=== PATIENT | female | born 1995 | race Caucasian/White ===

== ENCOUNTER 2017-10-18 08:59 | Emergency (ER) | payer OTHER ==
[~2017-10-18 08:59] MED LIST: CHERATUSSIN AC118 M1 PO; MUCINEX1200 M1 PO; PREDNISONE50 M1 PO; PROAIR HFA8.5 GM INH; ZITHROMAX250 M2 PO
[2017-10-18 09:09] VITALS: BP 111/72
--- NOTE | 2017-10-18 10:24 | ED DYSPNEA/ASTHMA COMPLAINT ---
History of Present Illness General Chief Complaint: General Adult Stated Complaint: WHEEZING,COUGH, MUCUS COMING UP X1 WEEK Source: patient Exam Limitations: no limitations Vital Signs & Intake/Output Vital Signs & Intake/Output Vital Signs Date Time Temp Pulse Resp B/P B/P Pulse O2 O2 Flow FiO2 Mean Ox Delivery Rate 10/18 908 97.3 83 20 111/72 95 Allergies Coded Allergies: Penicillins (Intermediate, HIVES 12/24/16) oxycodone (VOMITING 12/24/16) Triage Note: PER PT "THINK I HAVE BRONCHITIS PROE TO IT COUGH X 1 WEEK NO FEVER LMP 2 WEEKS AGO Triage Nurses Notes Reviewed? yes Onset: Abrupt Duration: week(s): (1), constant, continues in ED, getting worse Timing: single episode today Severity: mild, moderate Activities at Onset: none Prior Episodes/Possible Cause: frequent episodes Associated Symptoms: cough, wheezing LMP (ages 10-50): unknown : No Patient currently breastfeeds: No HPI: 22-year-old female history of bronchitis was evaluation of cough, congestion, wheezing and shortness of breath. Patient reports that over the past 5 or 6 months she has had multiple episodes of acute bronchitis. She has been seen by pulmonology treated with prednisone and steroid inhalers with some improvement. Currently she is only on a steroid inhaler that she is using once a day. She has no rescue inhaler. She is not on prednisone and antibiotics. This current episode started about one week ago. She reports a cough productive of yellow sputum. She is a current smoker but does not smoke every day. She's never diagnosed with asthma. She has not had fevers no hemoptysis no lower extremity edema. (Donald MONTENEGRO,Chris) Reconcile Medications Albuterol Sulfate (Proair Hfa) 90 MCG HFA.AER.AD 2 PUF INH Q4-6 PRN PRN wheezing Albuterol Sulfate (Proair Hfa) 90 MCG HFA.AER.AD 2 PUF INH Q4-6 PRN PRN wheezing Albuterol Sulfate (Proair Hfa) 90 MCG HFA.AER.AD 2 PUF INH Q4-6 PRN PRN COUGH/ WHEEAZING Azithromycin (Zithromax) 250 MG TABLET 1 DP PO AD bronchitis 2 the first day followed by 1 for days 2-5 Azithromycin (Zithromax) 250 MG TABLET 1 DP PO AD bronchitis 2 the first day followed by 1 for days 2-5 Azithromycin 250 MG TABLET 1 DP PO AD BRONCHITIS 2 the first day followed by 1 for days 2-5 Codeine Phosphate/Guaifenesi (Cheratussin AC Syrup) 10 MG-100 MG/5 ML LIQUID 10 ML PO Q6H PRN COUGH Codeine Phosphate/Guaifenesi (Cheratussin AC Syrup) 10 MG-100 MG/5 ML LIQUID 10 ML PO Q6H PRN COUGH Codeine Phosphate/Guaifenesi (Cheratussin AC Syrup) 10 MG-100 MG/5 ML LIQUID 10 ML PO Q6H PRN COUGH Guaifenesin (Mucinex) 1,200 MG TAB.ER.12H 1 TAB PO BID MUCUS (Reported) Prednisone 50 MG TABLET 1 TAB PO DAILY bronchitis Prednisone 50 MG TABLET 1 TAB PO DAILY bronchitis Prednisone (Deltasone) 20 MG TABLET 2 TAB PO ONCE DAILY BRONCHITIS (Molly URBINA,Eliseo Darnell) Past History Travel History Traveled to [place] past 21 day No Medical History Any Pertinent Medical History? 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 No (Chris Llanos) Review of Systems Review of Systems Constitutional: Reports: no symptoms. EENTM: Reports: nasal congestion. Respiratory: Reports: see HPI, cough, short of breath, sputum production, wheezing. Cardiovascular: Reports: no symptoms. GI: Reports: no symptoms. Genitourinary: Reports: no symptoms. Musculoskeletal: Reports: no symptoms. Skin: Reports: no symptoms. Neurological/Psychological: Reports: no symptoms. Hematologic/Endocrine: Reports: no symptoms. Immunologic/Allergic: Reports: no symptoms. All Other Systems: Reviewed and Negative (Chris Llanos) Physical Exam Physical Exam General Appearance: well developed/nourished, no apparent distress, alert, awake Head: atraumatic, normal appearance Eyes: Bilateral: normal appearance, PERRL, EOMI. Ears, Nose, Throat: hearing grossly normal Neck: normal inspection, supple, full range of motion Respiratory: normal breath sounds, chest non-tender, no respiratory distress, wheezing Cardiovascular: regular rate/rhythm, normal peripheral pulses Peripheral Pulses: 2+ radial (R), 2+ radial (L) Gastrointestinal: soft, non-tender Extremities: normal inspection, normal range of motion, no edema Neurologic/Psych: no motor/sensory deficits, awake, alert, oriented x 3, normal gait Skin: intact, normal color, warm/dry Lymphatic: no anterior cervical jocelyn Core Measures ACS in differential dx? No CVA/TIA Diagnosis No Sepsis Present: No Sepsis Focused Exam Completed? No (Chris Llanos) Progress Differential Diagnosis: asthma, bronchitis, COPD, pulmonary embolism, pneumonia, pneumothorax, unstable angina Plan of Care: Patient is here with diffuse wheezing cough and shortness of breath. She has a history of recurrent bronchitis. PERC score is negative. Patient is medicated with prednisone and DuoNeb. She is afebrile vital signs stable. Patient is feeling better after DuoNeb. She is given a prescription for prednisone burst Zithromax pro-air inhaler and Cheratussin. Advised to follow- up with her primary care doctor and network and threat support specialist. Discussed return precautions patient agrees the plan Initial ED EKG: none (Chris Llanos) Departure Departure Disposition: HOME OR SELF CARE Condition: Stable Clinical Impression Primary Impression: Acute bronchitis Qualifiers: Bronchitis organism: unspecified organism Qualified Code: J20.9 - Acute bronchitis, unspecified Referrals: Veronica URBINA,Titus Darnell (PCP/Family) Additional Instructions: Take antibiotics and steroids as directed for the full course. Continue your current steroid inhaler. Also use pro-air inhaler 2 puffs every 4-6 hours as needed. Cheratussin can be use as needed for cough this may cause drowsiness. Quit smoking. Make a follow-up with the primary care doctor and network and threat support specialist as soon as possible. Monitor symptoms and return with any concerns. Departure Forms: Customer Survey General Discharge Information Prescriptions: Current Visit Scripts Codeine Phosphate/Guaifenesi (Cheratussin AC Syrup) 10 ML PO Q6H PRN COUGH #240 ML Prednisone (Deltasone) 2 TAB PO ONCE DAILY #10 TAB Azithromycin 1 DP PO AD #6 TAB 2 the first day followed by 1 for days 2-5 Albuterol Sulfate (Proair Hfa) 2 PUF INH Q4-6 PRN PRN COUGH/WHEEAZING #1 INHAL (Chris Llanos) PA/MCAT TUTOR Co-Sign Statement Statement: ED Attending supervision documentation- [] I saw and evaluated the patient. I have also reviewed all the pertinent lab results and diagnostic results. I agree with the findings and the plan of care as documented in the PA's/MCAT TUTOR's documentation. [X] I have reviewed the ED Record and agree with the PA's/MCAT TUTOR's documentation. [] Additions or exceptions (if any) to the PAs/MCAT TUTOR's note and plan are summarized below: [] (Molly URBINA,Eliseo Darnell) Critical Care Note Critical Care Note Critical Care Time: non-applicable (Chris Llanos)
[2017-10-18] MEDS ORDERED: DELTASONE20 MG PO (10:34)
[2017-10-18] MEDS ORDERED: AZITHROMYCIN250 M1 PO (10:34)
[2017-10-18] MEDS ORDERED: CHERATUSSIN AC118 M1 PO (10:34)
[2017-10-18] MEDS ORDERED: PROAIR HFA8.5 GM INH (10:34)
== END 2017-10-18 10:39 ==
LOC: ERH 08:59
DX: J20.9 Acute bronchitis, unspecified (principal); F17.210 Nicotine dependence, cigarettes, uncomplicated